=== PATIENT | male | born 1965 | race Caucasian/White ===

== ENCOUNTER 2016-07-09 06:34 | Day surgery (SDC) | payer MEDICAID ==
[~2016-07-09] VITALS: Ht 180.3 cm; Wt 165.9 kg
[~2016-07-09 06:34] MED LIST: SODIUM CHLORIDE 0.9% 1,000 ML IV ONE
[2016-07-09] MEDS ORDERED: SODIUM CHLORIDE 0.9% 1,000 ML IV ONE (06:44)
[2016-07-09 07:36] LABS: GLUCOSE,POINT OF CARE 112 MG/DL (70-110)
[2016-07-09] MEDS ORDERED: MIDAZOLAM HCL 2 MG/2 ML VIAL ONE (07:40)
[2016-07-09] MEDS ORDERED: FentaNYL CITRATE-PF 100 MCG/2 ML VIAL ONE (07:40)
[2016-07-09] MEDS ORDERED: LORA10TA7 PO (08:05)
[2016-07-09] MEDS ORDERED: RANI150T7 PO (08:05)
[2016-07-09] MEDS ORDERED: METF500T4 PO (08:05)
[2016-07-09] MEDS ORDERED: ATOR10TA84 PO (08:05)
[2016-07-09] MEDS ORDERED: GABA-531 PO (08:05)
[2016-07-09] MEDS ORDERED: LISI-661 PO (08:05)
[2016-07-09] MEDS ORDERED: ASPI-556 PO (08:05)
[2016-07-09] MEDS ORDERED: MethylPREDNISolone SOD SUCC 125 MG/2 ML VIAL IVP ONE (08:45)
[2016-07-09] MEDS ORDERED: MethylPREDNISolone SOD SUCC 125 MG/2 ML VIAL ONE (09:24)
[2016-07-09] MEDS ORDERED: LIDOCAINE HCL 2% 30 ML JELLY TP ONE (11:54)
[2016-07-09] MEDS ORDERED: LIDOCAINE HCL 4% 50 ML SOLUTION TP ONE (11:54)
[2016-07-09] MEDS ORDERED: ALBUTEROL SULFATE 2.5 MG/0.5 ML NEB SOLUTION NEB ONE (11:54)
[2016-07-09] MEDS ORDERED: BENZOCAINE 20% 50 MCG/SPRAY 57 GM TP ONE (11:54)
[2016-07-09] MEDS ORDERED: OXYGEN THERAPY IH SCH (20:00)
== END 2016-07-09 10:30 | disposition home or self-care (01) ==
LOC: SURGERY 06:34
PROVIDERS: ATTEND Internal Medicine Critical Care Medicine
DX: J38.4 Edema of larynx (principal); B37.0 Candidal stomatitis; I10 Essential (primary) hypertension; E11.9 Type 2 diabetes mellitus without complications; E78.00 Pure hypercholesterolemia, unspecified
CPT/HCPCS: 31623; 31624; 71010; 82962; 87015 ×2; 87070; 87101; 87205; 87220; 88108; 88184; 88185; 88312; J2250; J2930; J3010; J7030